=== PATIENT | male | born 1965 | race Caucasian/White ===

== ENCOUNTER 2019-02-21 19:46 | Outpatient (CLI) | payer BC | END 2019-02-22 07:00 | disposition home or self-care (01) | LOC: SLEEP 19:46 | PROVIDERS: ATTEND Nurse Practitioner | DX: G47.33 Obstructive sleep apnea (adult) (pediatric) (principal); Z99.89 Dependence on other enabling machines and devices | CPT/HCPCS: 95811 ==

== ENCOUNTER 2020-11-16 14:00 | Emergency (ER) | payer BC ==
[~2020-11-16] VITALS: Ht 172.7 cm; Wt 88.5 kg
--- NOTE | 2020-11-16 14:19 | ED Respiratory ---
General Stated Complaint: FATIGUE,COUGH,LOSS OF SMELL,FEVER Source: patient History of Present Illness Date Seen by Provider: Nov 16, 2020 Time Seen by Provider: 14:15 Initial Comments PT ARRIVES VIA POV STATES HE HAS HAD COVID FOR 2 WEEKS AND IS GETTING WORSE HAS NOT BEEN TESTED FOR COVID-19 PT BEGAN HAVING SYMPTOMS 11/03/20 BEGAN GETTING SICK BEFORE HE DID, BUT SHE WAS ONLY SICK FOR A WEEK AND IS NOW FINE. SHE DID NOT RECEIVE ANY TREATMENT FOR COVID C/O COUGH--MA SPUTUM C/O FEVER--WAS 102.5 TODAY--TOOK TYLENOL AN HOUR AGO C/O FATIGUE C/O LOSS OF SMELL AND TASTE C/O FRONTAL HEADACHE C/O NAUSEA, NO VOMITING C/O DIARRHEA--HAD SOME LAST WEEK, BUT VERY LITTLE STOOL HE IS NOT EATING MUCH--DECREASED APPETITE PT IS ABLE TO DRINK LIQUIDS PT IS VOIDING A NORMAL AMOUNT C/O SORE THROAT AND VOICE IS NOW HOARSE FROM COUGHING C/O BODY ACHES NO SHORTNESS OF BREATH NO CHEST PAIN NO SWELLING IN LEGS/FEET PT WENT TO URGENT CARE IN [place] YESTERDAY, AND STATES THEY DID A SPUTUM CULTURE AND GAVE HIM SOME ANTIBIOTICS--AMOXICILLIN, OTHERWISE NO OTHER TESTS WERE DONE. PT STATES HE WAS NOT TESTED FOR COVID HAS NOT TAKEN ANYTHING ELSE FOR SYMPTOMS PT HAS NOT HAD COVID-19 VACCINE PT IS NON-SMOKER NO RESPIRATORY PROBLEMS NO CHRONIC MEDICAL PROBLEMS PCP: DR. JIMENEZ Allergies and Home Medications Allergies Coded Allergies: No Known Drug Allergies (Unverified , 11/16/20) Home Medications Azithromycin 500 Mg Tablet, 500 MG PO DAILY Prescribed by: PANTERA RICH on 11/16/201623 Cefdinir 300 Mg Capsule, 300 MG PO BID Prescribed by: PANTERA RICH on 11/16/201623 Dexamethasone 6 Mg Tablet, 6 MG PO DAILY Prescribed by: PANTERA RICH on 11/16/201623 Guaifenesin/Dextromethorphan 1 Each Tbmp.12hr, 1 EACH PO BID Prescribed by: PANTERA RICH on 11/16/201623 Ondansetron 8 Mg Tab.rapdis, 8 MG PO Q6H Prescribed by: PANTERA RICH on 11/16/201623 Patient Home Medication List Home Medication List Reviewed: Yes Review of Systems Review of Systems Constitutional: see HPI, fever, malaise, weakness EENTM: see HPI, nose congestion Respiratory: see HPI, cough; No short of breath Cardiovascular: no symptoms reported; No chest pain Gastrointestinal: see HPI, diarrhea, loss of appetite, nausea; No vomiting Genitourinary: no symptoms reported; No decreased output Musculoskeletal: other (BODY ACHES) Skin: no symptoms reported Psychiatric/Neurological: See HPI, Headache Hematologic/Lymphatic: No Symptoms Reported Immunological/Allergic: no symptoms reported Past Fmpifzr-Pgpqon-Fvyqpq Hx Patient Social History Tobacco Use?: No Substance use?: No Alcohol Use?: Yes Alcohol Frequency: Couple times a week Past Medical History Surgeries: No Respiratory: Yes Sleep Apnea Currently Using CPAP: Yes Cardiac: No Neurological: No Genitourinary: No Gastrointestinal: No Musculoskeletal: No Endocrine: No HEENT: No Cancer: No Psychosocial: No Integumentary: No Blood Disorders: No Physical Exam Vital Signs - First Documented 11/16/20 11/16/20 14:22 16:45 Temp 37.2 Pulse 96 Resp 17 B/P (MAP) 131/85 (100) Pulse Ox 95 O2 Delivery Room Air Capillary Refill : Height: '" Weight: lbs. oz. 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, alert, normal mood/affect, oriented x 3 Skin: damp; No rash; other (SKIN IS WARM AND FLUSHED AND DAMP-CLOTHING IS DAMP FROM SWEAT) Focused Exam Lactate Level 11/16/20 15:15: Lactic Acid Level 0.97 Lactic Acid Level Laboratory Tests Test 11/16/20 15:15 Lactic Acid Level 0.97 MMOL/L (0.50-2.00) Progress/Results/Core Measures Suspected Sepsis SIRS Temperature: Pulse: Respiratory Rate: Laboratory Tests 11/16/20 15:15: White Blood Count 8.3 Blood Pressure / Mean: 11/16/20 15:15: Lactic Acid Level 0.97 Laboratory Tests 11/16/20 15:15: Creatinine 0.94, Platelet Count 251, Total Bilirubin 0.9 Results/Orders Lab Results Laboratory Tests Test 11/16/20 14:18 11/16/20 15:15 Range/Units Influenza Type A (RT-PCR) Not Detected Not Detecte Influenza Type B (RT-PCR) Not Detected Not Detecte SARS-CoV-2 RNA (RT-PCR) Detected H Not Detecte White Blood Count 8.3 4.3-11.0 10^3/uL Red Blood Count 4.70 4.30-5.52 10^6/uL Hemoglobin 14.6 13.3-17.7 g/dL Hematocrit 42 40-54 % Mean Corpuscular Volume 90 80-99 fL Mean Corpuscular Hemoglobin 31 25-34 pg Mean Corpuscular Hemoglobin Concent 35 32-36 g/dL Red Cell Distribution Width 11.7 10.0-14.5 % Platelet Count 251 130-400 10^3/uL Mean Platelet Volume 9.6 9.0-12.2 fL Immature Granulocyte % (Auto) 0 % Neutrophils (%) (Auto) 79 H 42-75 % Lymphocytes (%) (Auto) 10 L 12-44 % Monocytes (%) (Auto) 11 0-12 % Eosinophils (%) (Auto) 0 0-10 % Basophils (%) (Auto) 0 0-10 % Neutrophils # (Auto) 6.5 1.8-7.8 10^3/uL Lymphocytes # (Auto) 0.8 L 1.0-4.0 10^3/uL Monocytes # (Auto) 0.9 0.0-1.0 10^3/uL Eosinophils # (Auto) 0.0 0.0-0.3 10^3/uL Basophils # (Auto) 0.0 0.0-0.1 10^3/uL Immature Granulocyte # (Auto) 0.0 0.0-0.1 10^3/uL Erythrocyte Sedimentation Rate 73 H 0-30 MM/HR Sodium Level 141 135-145 MMOL/L Potassium Level 3.3 L 3.6-5.0 MMOL/L Chloride Level 105 98-107 MMOL/L Carbon Dioxide Level 24 21-32 MMOL/L Anion Gap 12 5-14 MMOL/L Blood Urea Nitrogen 9 7-18 MG/DL Creatinine 0.94 0.60-1.30 MG/DL Estimat Glomerular Filtration Rate > 60 BUN/Creatinine Ratio 10 Glucose Level 122 H 70-105 MG/DL Lactic Acid Level 0.97 0.50-2.00 MMOL/L Calcium Level 8.5 8.5-10.1 MG/DL Corrected Calcium 8.7 8.5-10.1 MG/DL Magnesium Level 2.2 1.6-2.4 MG/DL Total Bilirubin 0.9 0.1-1.0 MG/DL Aspartate Amino Transf (AST/SGOT) 47 H 5-34 U/L Alanine Aminotransferase (ALT/SGPT) 35 0-55 U/L Alkaline Phosphatase 68 40-136 U/L Lactate Dehydrogenase 276 H 125-220 U/L C-Reactive Protein High Sensitivity 21.02 H 0.00-0.50 MG/DL Total Protein 7.3 6.4-8.2 GM/DL Albumin 3.8 3.2-4.5 GM/DL Procalcitonin 0.11 H <0.10 NG/ML My Orders Orders - PANTERA RICH DO Covid 19 Inhouse Test (11/16/20 14:09) Influenza A And B By Pcr (11/16/20 14:09) Ed Iv/Invasive Line Start (11/16/20 15:08) Monitor-Rhythm Ecg Trace Only (11/16/20 15:08) Cbc With Automated Diff (11/16/20 15:08) Comprehensive Metabolic Panel (11/16/20 15:08) Hs C Reactive Protein (11/16/20 15:08) Lactic Acid Analyzer (11/16/20 15:08) Magnesium (11/16/20 15:08) Procalcitonin (Pct) (11/16/20 15:08) Blood Culture (11/16/20 15:08) Erythrocyte Sedimentation Rate (11/16/20 15:08) Chest 1 View, Ap/Pa Only (11/16/20 15:08) LDH (11/16/20 15:08) Ed Iv/Invasive Line Start (11/16/20 15:08) Lactated Ringers (Lr 1000 Ml Iv Solution (11/16/20 15:15) Ondansetron Injection (Zofran Injectio (11/16/20 15:15) Dexamethasone Injection (Decadron Inje (11/16/20 15:30) Potassium Chloride (Tablet) (Klor Con Ta (11/16/20 16:30) Ceftriaxone (Rocephin) (11/16/20 16:30) Azithromycin Tablet (Zithromax Tablet) (11/16/20 16:30) Medications Given in ED Current Medications Medications Dose Ordered Sig/Yanelis Route Start Time Stop Time Status Last Admin Dose Admin Azithromycin 500 mg ONCE ONCE PO 11/16/20 16:30 11/16/20 16:31 DC 11/16/20 16:25 500 MG Ceftriaxone Sodium 1000 mg/ Sterile Water 10 ml @ 200 mls/hr ONCE ONCE IV 11/16/20 16:30 11/16/20 16:32 DC 11/16/20 16:25 200 MLS/HR Lactated Ringer's 1,000 ml @ 0 mls/hr Q0M ONCE IV 11/16/20 15:15 11/16/20 15:16 DC 11/16/20 15:25 999 MLS/HR Ondansetron HCl 4 mg ONCE ONCE IVP 11/16/20 15:15 11/16/20 15:16 DC 11/16/20 15:25 4 MG Potassium Chloride 20 meq ONCE ONCE PO 11/16/20 16:30 11/16/20 16:31 DC 11/16/20 16:26 20 MEQ Vital Signs/I&O 11/16/20 11/16/20 11/16/20 14:22 14:26 16:45 Temp 37.2 Pulse 96 81 Resp 17 17 B/P (MAP) 131/85 (100) 119/64 Pulse Ox 95 O2 Delivery Room Air Room Air Room Air Capillary Refill : Progress Note : Progress Note PLACED IN ISOLATION ROOM PPE WORN AT ALL TIMES COVID-19 TESTING PERFORMED NO HYPOXIA NO SIGNFICANT FEVER NO DYSPNEA NO COUGH NO ABNORMAL VITAL SIGNS GIVEN IV FLUIDS, DECADRON AND ZOFRAN ALSO GIVEN ROCEPHIN, ZITHROMAX, KCL NO DETERIORATION IN PT'S CONDITION DURING ER STAY PT IS NOT A CANDIDATE FOR REGEN-COV, DUE TO PT BEING SYMPTOMATIC > 10 DAYS, BMI IS LESS THAN 35, AGE IS < 65, AND NO CHRONIC MEDICAL CONDITIONS Diagnostic Imaging Comments CXR--PER RADIOLOGIST REPORT AT 1617 FINDINGS: The lung volumes are normal. Patchy opacities are seen in the mid and lower lungs, bilaterally. No large pleural effusion or pneumothorax is seen. The cardiomediastinal silhouette is normal in size and contour. No acute osseous abnormality is seen. IMPRESSION: Patchy opacities in the mid and lower lungs bilaterally, consistent with a history of Covid infection. Reviewed: Reviewed by Me Departure Impression Primary Impression: Pneumonia due to COVID-19 virus Additional Impression: MILD HYPOKALEMIA Disposition: HOME, SELF-CARE Condition: Stable Departure-Patient Inst. Decision time for Depature: 16:15 Referrals: BAA JIMENEZ DO (PCP/Family) Primary Care Physician Patient Instructions: COVID-19 (DC), Hypokalemia (DC), Preventing the Spread of an Infectious Disease, Recovery After COVID-19 Add. Discharge Instructions: LOTS OF CLEAR LIQUIDS TYLENOL 1 GRAM / MOTRIN 800 MG 4 TIMES A DAY FOR PAIN OR FEVER OVER THE COUNTER ROBITUSSIN DM OR MUCINEX DM FOR COUGH QUARANTINE FOR THE NEXT 2 WEEKS FOLLOW UP WITH YOUR DR IN 3-5 DAYS FOR FURTHER CARE--CALL IN AM TO SCHEDULE APPOINTMENT RETURN TO ER IF SYMPTOMS WORSEN Scripts Ondansetron (Ondansetron Odt) 8 Mg Tab.rapdis 8 MG PO Q6H, #10 TAB Prov: PANTERA RICH DO 11/16/20 Guaifenesin/Dextromethorphan (Mucinex Dm ER 1,200-60 mg Tab) 1 Each Tbmp.12hr 1 EACH PO BID, #20 EA Prov: PANTERA RICH DO 11/16/20 Dexamethasone (Decadron) 6 Mg Tablet 6 MG PO DAILY, #10 TAB Prov: PANTERA RICH DO 11/16/20 Azithromycin (Zithromax) 500 Mg Tablet 500 MG PO DAILY for 5 Days, #5 TAB Prov: PANTERA RICH DO 11/16/20 Cefdinir (Cefdinir) 300 Mg Capsule 300 MG PO BID, #20 CAP Prov: PANTERA RICH DO 11/16/20 Work/School Note: Work Release Form Date Seen in the Emergency Department: Nov 16, 2020 Return to Work: Dec 01, 2020 Restrictions: Need Release from Doctor PANTERA RICH DO Nov 16, 2020 14:19
[2020-11-16] MEDS ORDERED: LACTATED RINGERS 1,000 ML IV ONE (15:15)
[2020-11-16] MEDS ORDERED: ONDANSETRON 4 MG/2 ML (SDV) Z0FRAN IVP ONE (15:15)
[2020-11-16 15:38] LABS: BASOPHILS % (AUTO) 0 % (0-10); EOSINOPHILS % (AUTO) 0 % (0-10); HEMATOCRIT 42 % (40-54); HEMOGLOBIN 14.6 g/dL (13.3-17.7); LYMPHOCYTES # (AUTO) 0.8 10^3/uL (1.0-4.0); LYMPHOCYTES % (AUTO) 10 % (12-44); MEAN CORPUSCULAR HEMOGLOBIN 31 pg (25-34); MEAN CORPUSCULAR HGB CONC 35 g/dL (32-36); MEAN CORPUSCULAR VOLUME 90 fL (80-99); MEAN PLATELET VOLUME 9.6 fL (9.0-12.2); MONOCYTES # (AUTO) 0.9 10^3/uL (0.0-1.0); MONOCYTES % (AUTO) 11 % (0-12); NEUTROPHILS # (AUTO) 6.5 10^3/uL (1.8-7.8); NEUTROPHILS % (AUTO) 79 % (42-75); PLATELET COUNT 251 10^3/uL (130-400); WHITE BLOOD COUNT 8.3 10^3/uL (4.3-11.0)
[2020-11-16 15:45] LABS: ALBUMIN 3.8 GM/DL (3.2-4.5); CHLORIDE 105 MMOL/L (98-107); POTASSIUM 3.3 MMOL/L (3.6-5.0); SODIUM 141 MMOL/L (135-145)
[2020-11-16 15:46] LABS: CALCIUM 8.5 MG/DL (8.5-10.1)
[2020-11-16 15:47] LABS: GLUCOSE 122 MG/DL (70-105)
[2020-11-16 15:48] LABS: TOTAL PROTEIN 7.3 GM/DL (6.4-8.2)
[2020-11-16 15:49] LABS: BILIRUBIN,TOTAL 0.9 MG/DL (0.1-1.0); CARBON DIOXIDE 24 MMOL/L (21-32)
[2020-11-16 15:51] LABS: ALKALINE PHOSPHATASE 68 U/L (40-136); CREATININE SERUM 0.94 MG/DL (0.60-1.30); GFR ESTIMATED > 60
[2020-11-16 15:52] LABS: BUN/CREATININE RATIO 10
[2020-11-16 15:54] LABS: ALANINE AMINOTRANSFERASE 35 U/L (0-55); MAGNESIUM 2.2 MG/DL (1.6-2.4)
[2020-11-16 16:02] LABS: ERYTHROCYTE SEDIMENTATION RATE 73 MM/HR (0-30)
--- NOTE | 2020-11-16 16:14 | Diagnostic Imaging Report ---
EXAMINATION: Chest 1 view. HISTORY: Covid positive. Shortness of breath. COMPARISON: None available. FINDINGS: The lung volumes are normal. Patchy opacities are seen in the mid and lower lungs, bilaterally. No large pleural effusion or pneumothorax is seen. The cardiomediastinal silhouette is normal in size and contour. No acute osseous abnormality is seen. IMPRESSION: Patchy opacities in the mid and lower lungs bilaterally, consistent with a history of Covid infection. Dictated by: Dictated on workstation # [id number]
[2020-11-16] MEDS ORDERED: DEXA6TAB6 PO (16:24)
[2020-11-16] MEDS ORDERED: CEFD300C3 PO (16:24)
[2020-11-16] MEDS ORDERED: GUAI1TBM19 PO (16:24)
[2020-11-16] MEDS ORDERED: AZIT500T PO (16:24)
[2020-11-16] MEDS ORDERED: ONDA8TAB13 PO (16:24)
[2020-11-16] MEDS ORDERED: cefTRIAXone 1,000 MG in WATER (STERILE) FOR INJECTION 10 ML IV ONE (16:30)
[2020-11-16] MEDS ORDERED: AZITHROMYCIN 250 MG TAB (ZITHROMAX) PO ONE (16:30)
[2020-11-16] MEDS ORDERED: KCL 10 MEQ TAB (MICRO K) PO ONE (16:30)
[2020-11-16 16:45] VITALS: BP 119/64
== END 2020-11-16 16:45 | disposition home or self-care (01) ==
LOC: EDUNIT# 14:00 → ER 14:05
DX: U07.1 COVID-19 (principal); J12.82 Pneumonia due to coronavirus disease 2019; E87.6 Hypokalemia; G47.30 Sleep apnea, unspecified
CPT/HCPCS: 36415; 71045; 80053; 83605; 83615; 83735; 84145; 85025; 85652; 86141; 87040; 87636; 93041